=== PATIENT | male | born 1980 | race Hispanic/Latino ===

== ENCOUNTER 2018-01-26 10:20 | Emergency (ER) | payer BC ==
[~2018-01-26] VITALS: Ht 182.9 cm; Wt 113.0 kg
[~2018-01-26 10:20] MED LIST: AMOXICILLIN500 MG OR; AMOXICILLIN500 MG PO; BACTRIM DS1 TAB OR; NO HOME MEDS; POLYTRIM OU; REGLAN10 MG OR
[2018-01-26 11:28] LABS: URINE BILIRUBIN - DIPSTICK NEGATIVE (NEGATIVE); URINE BLOOD DIPSTICK NEGATIVE (NEGATIVE); URINE COLOR YELLOW; URINE GLUCOSE - DIPSTICK NEGATIVE (NEGATIVE); URINE KETONE NEGATIVE (NEGATIVE); URINE LEUK ESTERASE NEGATIVE (NEGATIVE); URINE NITRITE - DIPSTICK NEGATIVE (Negative); URINE PH 6.5 (4.5-8.0); URINE PROTEIN - DIPSTICK 100 mg/dL (NEG-TRACE)
[2018-01-26 11:29] LABS: HEMATOCRIT 49.2 % (39.0-50.0); IMMATURE GRANULOCYTES 0.3 % (0.0-5.0); MEAN CORPUSCULAR HGB CONC 32.5 g/L CALC (32.0-36.0); NEUT# 3.88 thou/uL (1.82-7.42); RED BLOOD COUNT 5.51 mill/uL (4.70-6.10); RED CELL DISTRI WIDTH 13.1 % (11.5-15.5)
[2018-01-26 11:31] LABS: MEAN CELL VOLUME 89.3 fL CALC (80.0-100.0)
[2018-01-26 11:43] LABS: ALBUMIN 4.7 g/dL (3.2-5.0); ANION GAP 15 (6-22 (CALC)); BILIRUBIN, TOTAL 1.4 mg/dL (0.0-1.4); BUN 19 mg/dL (9-20); BUN/CREATININE RATIO 15 (12-20 (CALC)); CARBON DIOXIDE 30 mmol/l (22-30); CHLORIDE 102 mmol/l (95-108); CREATININE 1.3 mg/dL (0.7-1.3); GFR > 60 ML/MIN (>=60 (CALC)); GFR FOR AFR.AMER. > 60 ML/MIN (>=60 (CALC)); POTASSIUM 4.6 mmol/l (3.5-5.1); SGOT/AST 49 u/l (17-59); SGPT/ALT 68 u/l (21-72); SODIUM 142 mmol/l (137-146); TOTAL PROTEIN 7.9 g/dL (6.3-8.2)
[2018-01-26 11:54] LABS: URINE CLARITY CLEAR
[2018-01-26 12:23] LABS: ALKALINE PHOSPHATASE 42 u/l (38-126)
[2018-01-26] MEDS ORDERED: ZESTRIL10 M1 PO (12:55)
[2018-01-26 12:59] VITALS: BP 144/94
[2018-01-26 13:14] LABS: URINE SQUAMOUS EPITHELIAL CELL FEW EPI/hpf (0-FEW)
== END 2018-01-26 13:08 | disposition home or self-care (01) | DRG 305 ==
LOC: ED 10:20
PROVIDERS: Emergency Medicine
DX: I10 Essential (primary) hypertension (principal); R60.9 Edema, unspecified; F17.210 Nicotine dependence, cigarettes, uncomplicated

== ENCOUNTER 2020-01-18 17:57 | Emergency (ER) | payer BC ==
[~2020-01-18 17:57] MED LIST changes: +ZESTRIL10 M1 PO
[2020-01-18] MEDS ORDERED: B/P PILL PO (19:44)
== END 2020-01-18 18:06 | disposition left against medical advice (07) | DRG 951 ==
LOC: ED 17:57
DX: Z91.19 Patient's noncompliance with other medical treatment and regimen (principal)

== ENCOUNTER 2020-01-18 19:21 | Emergency (ER) | payer BC ==
[~2020-01-18] VITALS: Ht 182.9 cm; Wt 100.0 kg
[2020-01-18] MEDS ORDERED: B/P PILL PO (19:44)
[2020-01-18 20:45] VITALS: BP 158/102
== END 2020-01-18 20:45 | disposition home or self-care (01) | DRG 951 ==
LOC: ED 19:21
DX: Z03.818 Encounter for observation for suspected exposure to other biological agents ruled out (principal); I10 Essential (primary) hypertension; F17.210 Nicotine dependence, cigarettes, uncomplicated